=== PATIENT | female | born 1980 | race Caucasian/White ===

== ENCOUNTER 2017-04-28 07:01 | Emergency (ER) | payer OTHER ==
[~2017-04-28] VITALS: Ht 162.6 cm; Wt 99.8 kg
[~2017-04-28 07:01] MED LIST: ORTHO TRI-CYCLE1 TA2 PO; PREDNISONE 20MG20 MG PO; ZITHROMAX Z-PA250 M1 PO; ZOFRAN4 M1 PO
--- NOTE | 2017-04-28 07:24 | ED GI/GU/ABDOMINAL COMPLAINT ---
History of Present Illness General Chief Complaint: Abdominal Pain/Flank Pain Stated Complaint: ABD PAIN AND NAUSEA Source: patient, family Exam Limitations: no limitations Vital Signs & Intake/Output Vital Signs & Intake/Output Vital Signs Date Time Temp Pulse Resp B/P B/P Pulse O2 O2 Flow FiO2 Mean Ox Delivery Rate 04/28 1129 98.6 60 18 115/74 100 Room Air 04/28 0917 96.4 58 18 103/52 95 Room Air ED Intake and Output 04/29 0000 04/28 1200 Intake Total 30 Output Total Balance 30 Intake, IV 30 Intake, Oral 0 Patient 220 lb Weight Weight Reported by Patient Measurement Method Allergies Coded Allergies: MDX - Cat Hair Extract (Cat Hair Extract) (UNKNOWN 04/19/12) CATS Reconcile Medications Azithromycin (Zithromax Z-Tico) 250 MG CAP 1 DP PO AD STREP 2 the first day followed by 1 for days 2-5 Ibuprofen 800 MG TABLET 1 TAB PO TID PRN PAIN NORGESTIMATE-ETHINYL ESTRADIOL (Ortho Tri-Cyclen Lo Tablet) [id number] LO TABLET 1 TAB PO DAILY CONTROL (Reported) Ondansetron (Zofran Odt) 4 MG TAB.RAPDIS 1 TAB PO Q6 PRN NAUSEA Ondansetron (Zofran Odt) 4 MG ODT 1 TAB PO Q6HR PRN NAUSEA Prednisone 20 MG TAB 2 TAB PO DAILY PHARYNGITIS Triage Note: C/O LOWER ABDOMINAL PAIN X 2 HOURS, STATES PAIN IS "STABBING AT TIMES" AND RADIATES TO R GROIN. DENIES NAUSEA OR DIARRHEA. LMP: 2 WEEKS AGO. Triage Nurses Notes Reviewed? yes ? N Is pt currently ? No Onset: Abrupt Duration: hour(s): (FEW) Quality/Severity: moderate, severe Location: right lower quadrant Radiation: vaginal Prior Abdominal Problems: none Associated Symptoms: NAUSEA HPI: 37 year old female presents wtih sharp RLQ pain radiating to vagina. Symptoms started abruptly this morning. Associated nausea but no vomiting. No fever or chills. Denies any urinary symptoms. She states she felt suddenly very mild while going to the left and the right lower quadrant without radiation. This morning it was severe and sharp. It was 7 out of 10 but currently 4-10. She took an anxiety medication she was with her son and she was worried that she might pass out and that seems to help ease her pain a little bit. Past History Travel History Traveled to [place] past 21 day No Medical History Any Pertinent Medical History? see below for history Neurological: NONE EENT: NONE Cardiovascular: NONE Respiratory: asthma Gastrointestinal: NONE Hepatic: NONE Renal: NONE Musculoskeletal: NONE Psychiatric: NONE Endocrine: NONE Blood Disorders: NONE Cancer(s): NONE RN NEW GRADUATE/Reproductive: NONE Tetanus Vaccine: 04/22/12 Surgical History Surgical History: , ACL, ANAL FISTULA Psychosocial History What is your primary language Kazakh Tobacco Use: Never used ETOH Use: occasional use Illicit Drug Use: denies illicit drug use Family History Hx Contributory? No Review of Systems Review of Systems Constitutional: Denies: chills, fever. EENTM: Reports: no symptoms. Respiratory: Denies: cough, short of breath. Cardiovascular: Denies: chest pain, palpitations. GI: Reports: abdominal pain, nausea. Denies: vomiting. Genitourinary: Denies: discharge, dysuria. Musculoskeletal: Reports: no symptoms. Skin: Reports: no symptoms. Neurological/Psychological: Reports: no symptoms. Hematologic/Endocrine: Denies: bruising, bleeding, polyuria, polydipsia. Immunologic/Allergic: Denies: splenectomy. All Other Systems: Reviewed and Negative Physical Exam Physical Exam General Appearance: well developed/nourished, alert, awake, anxious Head: atraumatic, normal appearance Eyes: Bilateral: PERRL, EOMI. Ears, Nose, Throat, Mouth: hearing grossly normal, moist mucous membrane Neck: normal inspection, supple, full range of motion Respiratory: normal breath sounds, chest non-tender, no respiratory distress Cardiovascular: regular rate/rhythm Peripheral Pulses: 2+ radial (R), 2+ radial (L) Gastrointestinal: normal bowel sounds, soft, tenderness (right lower quadrant) Back: normal inspection, normal range of motion Extremities: normal range of motion, evidence of injury Neurologic/Psych: no motor/sensory deficits, awake, alert, oriented x 3 Skin: intact, normal color, warm/dry Core Measures ACS in differential dx? No Severe Sepsis Present: No Septic Shock Present: No Progress Differential Diagnosis: appendicitis, ectopic , kidney stone, ovarian cyst, ovarian torsion Plan of Care: Orders Procedure Date/time Status URINALYSIS 04/28 722 Complete PARTIAL THROMBOPLASTIN TIME 04/28 722 Complete PROTHROMBIN TIME 04/28 722 Complete HUMAN BETA HCG SCREEN 04/28 722 Complete C-REACTIVE PROTEIN 04/28 722 Complete COMPREHENSIVE METABOLIC PANEL 04/28 722 Complete CBC WITHOUT DIFFERENTIAL 04/28 722 Complete Laboratory Tests 04/28/17 0812: Anion Gap 11, Estimated GFR > 60, BUN/Creatinine Ratio 11.7, Glucose 84, Calcium 8.6, Total Bilirubin 0.3, AST 19, ALT 34, Alkaline Phosphatase 49, C-Reactive Prot, Quant 0.9, Total Protein 6.9, Albumin 3.8, Globulin 3.1, Albumin/Globulin Ratio 1.2, Total Beta HCG NEGATIVE 04/28/17 0743: PT 9.8, INR 0.93, APTT 28, CBC w Diff NO MAN DIFF REQ, RBC 4.49, MCV 87.8, MCH 29.1, RDW 12.9, MPV 8.6, Gran % 62.5, Lymphocytes % 30.3, Monocytes % 5.2, Eosinophils % 1.8, Basophils % 0.2, Absolute Granulocytes 4.8, Absolute Lymphocytes 2.3, Absolute Monocytes 0.4, Absolute Eosinophils 0.1, Absolute Basophils 0, PUBS MCHC 33.1 04/28/17 0730: Urinalysis LIGHT H, Urine Color YEL, Urine Clarity HAZY H, Urine pH 5.5, Ur Specific Hodge 1.025, Urine Protein NEG, Urine Ketones NEG, Urine Nitrite NEG, Urine Bilirubin NEG, Urine Urobilinogen 0.2, Ur Leukocyte Esterase NEG, Ur Microscopic SEDIMENT EXAMINED, Urine RBC 3-5, Urine WBC 5-10 H, Ur Epithelial Cells MANY H, Urine Bacteria MANY H, Urine Hemoglobin TRACE-LYSED, Urine Glucose NEG ' PAIN IMPROVED AFTER TORADOL. NAUSEA SOMEWHAT IMPROVED. LABS SENT, PENDINT CT SCAN ABDOMEN. REGLAN GIVEN FOR NAUSEA CT SCAN NEGATIVE EXCEPT SMALL AMOUNT OF FREE FLUID. PATIENT WOULD LIKE TO HAVE TRANSVAGINAL ULTRASOUND PERFOREDM WHILE IN THE HOSPITAL. 11:10 U/S RESULTS EXPLAINED TO PATIENT AND MOTHER. COPY OF REPORT GIVEN AND SHE WILL FOLLOW UP WITH HER OBGYN DOCTOR. (CARLOS ACEVES,JOSE) Diagnostic Imaging: Viewed by Me: CT Scan, Ultrasound. Discussed w/RAD: CT Scan, Ultrasound. Radiology Impression: PATIENT: YULIANA FUENTES PRESENT AGE: 37 PATIENT ACCOUNT NO: [id number] : 80 LOCATION: [facility] ORDERING PHYSICIAN: JOSE GONZALEZ MD SERVICE DATE: 04/28/17 EXAM TYPE: CAT - CT ABD & PELVIS W IV CONTRAST EXAMINATION: CT ABDOMEN AND PELVIS WITH CONTRAST CLINICAL INFORMATION: Right lower quadrant pain. COMPARISON: 05/05/2012. TECHNIQUE: Contiguous axial thin section helical images of the abdomen and pelvis were performed following the administration of 95 mL of intravenous Optiray 320. The data set was reformatted in the coronal and sagittal planes and reviewed on an independent workstation. DLP: 1515 mGy-cm. FINDINGS: The visualized lung bases are clear. The visualized portions of the heart are unremarkable. The liver is of normal size and attenuation without concerning focal lesions nor intrahepatic biliary ductal dilation. In ill-defined area of low-attenuation within the inferior right lobe of the liver on image 32/108 measuring 1.3 cm is unchanged from prior exam. A normal gallbladder is identified. There is no wall thickening or discernible pericholecystic fluid. The spleen, pancreas, adrenal glands are unremarkable. Both kidneys are of normal size and attenuation without hydronephrosis or nephrolithiasis. Following the administration of IV contrast, prompt symmetric nephrograms are displayed. There is no abdominal free fluid. There is neither mesenteric nor retroperitoneal lymphadenopathy. Normal unopacified loops of small and large bowel are identified. A normal appendix is identified. There is a small amount of likely physiologic pelvic free fluid. The urinary bladder is unremarkable. There is neither pelvic nor inguinal lymphadenopathy. Bone windows: Neither sclerotic nor lytic bone lesions are identified. IMPRESSION: No evidence for acute abdominal or pelvic inflammatory or infectious processes. Specifically, a normal appendix is identified. Small amount of likely physiologic pelvic free fluid. DICTATED BY: CARMEN TEJEDA MD DATE/TIME DICTATED:04/28/17920 OBSTETRICS/GYNECOLOGY NURSE:MYLA DATE/TIME TRANSCRIBED:04/28/17920 CONFIDENTIAL, DO NOT COPY WITHOUT APPROPRIATE AUTHORIZATION. <Electronically signed in Other Vendor System> SIGNED BY: CARMEN TEJEDA MD 04/28/17929, PATIENT: YULIANA FUENTES PRESENT AGE: 37 PATIENT ACCOUNT NO: [id number] : 80 LOCATION: [facility] ORDERING PHYSICIAN: JOSE GONZALEZ MD SERVICE DATE: 04/28/17 EXAM TYPE: US - US-TRANSVAGINAL EXAMINATIONS: ULTRASOUND PELVIC, COMPLETE AND DOPPLER INTERROGATION CLINICAL INFORMATION: Right lower quadrant pain. COMPARISON: Same day abdominal and pelvic CT. TECHNIQUE: Transvaginal imaging was performed. Transvaginal imaging was performed for further evaluation of the endometrium and adnexa. Doppler interrogation and spectral analysis was performed. FINDINGS: The uterus is of normal size and echogenicity measuring 8.0 x 3.7 x 5.2 cm. There is an approximately 15 mm anterior body myometrial fibroid. A regular homogeneous endometrium is identified measuring 0.2 cm. The cervical length is 3.8 cm. Both ovaries are of normal size and echogenicity. The right measures 4.0 x 2.4 x 1.6 cm for a volume of 8.0 cc. This measurement includes an approximately 10 mm complex cystic focus. The left measures 2.4 x 1.7 x 1.7 cm for a volume of 3.6 cc. Normal arterial and venous blood flow is present bilaterally. There is a small amount of likely physiologic pelvic free fluid. IMPRESSION: 10 mm mildly complicated right ovarian cyst. 15 mm myometrial fibroid. Otherwise, unremarkable pelvic ultrasound. DICTATED BY: CARMEN TEJEDA MD DATE/TIME DICTATED:04/28/171107 OBSTETRICS/GYNECOLOGY NURSE:MYLA DATE/TIME TRANSCRIBED:04/28/171107 CONFIDENTIAL, DO NOT COPY WITHOUT APPROPRIATE AUTHORIZATION. <Electronically signed in Other Vendor System> SIGNED BY: CARMEN TEJEDA MD 04/28/17 1115 Initial ED EKG: none Departure Departure Time of Disposition: 1115 Disposition: HOME OR SELF CARE Condition: Stable Clinical Impression Primary Impression: Ovarian cyst Referrals: NIKO ACEVES,Joleen STUBBS (PCP/Family) Additional Instructions: Take ibuprofen or Tylenol as needed for pain. Zofran as needed for nausea. Please follow up the results of her pelvic ultrasound with her ARCHEOLOGY PROFESSOR doctor. Return to the ER for any changing or worsening symptoms. Departure Forms: Customer Survey General Discharge Information Prescriptions: Current Visit Scripts Ondansetron (Zofran Odt) 1 TAB PO Q6 PRN NAUSEA #10 TAB Ibuprofen 1 TAB PO TID PRN PAIN #20 TAB
[2017-04-28 07:51] LABS: ABSOLUTE BASOPHIL COUNT 0 /CUMM (0.0-0.2); ABSOLUTE EOSINOPHIL COUNT 0.1 /CUMM (0.0-0.7); ABSOLUTE GRANULOCYTE CT 4.8 /CUMM (1.4-6.5); ABSOLUTE LYMPH COUNT 2.3 /CUMM (1.2-3.4); ABSOLUTE MONOCYTE COUNT 0.4 /CUMM (0.10-0.60); BASOPHIL % 0.2 % (0.0-2.0); EOSINOPHIL % 1.8 % (0-5); GRANULOCYTE % 62.5 % (42.2-75.2); HEMATOCRIT 39.4 % (37-47); MEAN CORPUSCULAR HGB 29.1 PG (27.0-31.0); MEAN CORPUSCULAR HGB CONC 33.1 G/DL (33.0-37.0); MEAN CORPUSCULAR VOLUME 87.8 FL (81.0-99.0); MEAN PLATELET VOLUME 8.6 FL (7.4-10.4); PLATELET COUNT 276 /CUMM (130-400); RBC DISTRIBUTION WIDTH 12.9 % (11.5-14.5); RED BLOOD CELL CT 4.49 /CUMM (4.20-5.40); WHITE BLOOD CELL COUNT 7.7 /CUMM (4.8-10.8)
[2017-04-28 08:11] LABS: PT 9.8 SEC (9.4-12.5); PTT 28 SEC (25-37)
--- NOTE | 2017-04-28 09:30 | CT SCAN REPORT ---
EXAMINATION: CT ABDOMEN AND PELVIS WITH CONTRAST CLINICAL INFORMATION: Right lower quadrant pain. COMPARISON: 05/05/2012. TECHNIQUE: Contiguous axial thin section helical images of the abdomen and pelvis were performed following the administration of 95 mL of intravenous Optiray 320. The data set was reformatted in the coronal and sagittal planes and reviewed on an independent workstation. DLP: 1515 mGy-cm. FINDINGS: The visualized lung bases are clear. The visualized portions of the heart are unremarkable. The liver is of normal size and attenuation without concerning focal lesions nor intrahepatic biliary ductal dilation. In ill-defined area of low-attenuation within the inferior right lobe of the liver on image 32/108 measuring 1.3 cm is unchanged from prior exam. A normal gallbladder is identified. There is no wall thickening or discernible pericholecystic fluid. The spleen, pancreas, adrenal glands are unremarkable. Both kidneys are of normal size and attenuation without hydronephrosis or nephrolithiasis. Following the administration of IV contrast, prompt symmetric nephrograms are displayed. There is no abdominal free fluid. There is neither mesenteric nor retroperitoneal lymphadenopathy. Normal unopacified loops of small and large bowel are identified. A normal appendix is identified. There is a small amount of likely physiologic pelvic free fluid. The urinary bladder is unremarkable. There is neither pelvic nor inguinal lymphadenopathy. Bone windows: Neither sclerotic nor lytic bone lesions are identified. IMPRESSION: No evidence for acute abdominal or pelvic inflammatory or infectious processes. Specifically, a normal appendix is identified. Small amount of likely physiologic pelvic free fluid.
--- NOTE | 2017-04-28 11:15 | ULTRASOUND REPORT ---
EXAMINATIONS: ULTRASOUND PELVIC, COMPLETE AND DOPPLER INTERROGATION CLINICAL INFORMATION: Right lower quadrant pain. COMPARISON: Same day abdominal and pelvic CT. TECHNIQUE: Transvaginal imaging was performed. Transvaginal imaging was performed for further evaluation of the endometrium and adnexa. Doppler interrogation and spectral analysis was performed. FINDINGS: The uterus is of normal size and echogenicity measuring 8.0 x 3.7 x 5.2 cm. There is an approximately 15 mm anterior body myometrial fibroid. A regular homogeneous endometrium is identified measuring 0.2 cm. The cervical length is 3.8 cm. Both ovaries are of normal size and echogenicity. The right measures 4.0 x 2.4 x 1.6 cm for a volume of 8.0 cc. This measurement includes an approximately 10 mm complex cystic focus. The left measures 2.4 x 1.7 x 1.7 cm for a volume of 3.6 cc. Normal arterial and venous blood flow is present bilaterally. There is a small amount of likely physiologic pelvic free fluid. IMPRESSION: 10 mm mildly complicated right ovarian cyst. 15 mm myometrial fibroid. Otherwise, unremarkable pelvic ultrasound.
[2017-04-28] MEDS ORDERED: IBUPROFEN800 M1 PO (11:18)
[2017-04-28] MEDS ORDERED: ZOFRAN ODT4 M1 PO (11:18)
[2017-04-28 11:29] VITALS: BP 115/74
== END 2017-04-28 11:29 ==
LOC: ERH 07:01
PROVIDERS: Emergency Medicine
DX: N83.201 Unspecified ovarian cyst, right side (principal)
CPT/HCPCS: 74177; 81001; 96374; 96375; J1885; J2405; J2765